=== PATIENT | male | born 1955 | race Caucasian/White ===

== ENCOUNTER 2017-12-04 15:16 | Inpatient (IN) | payer OTHER ==
[~2017-12-04] VITALS: Ht 175.3 cm; Wt 77.6 kg
[2017-12-04 17:43] LABS: HEMATOCRIT 40.2 % (38.0-50.0); HEMOGLOBIN 14.3 G/DL (12.5-16.6); MCH 32.3 PG (29.0-34.0); MCHC 35.6 G/DL (30.0-36.0); MCV 90.7 FL (86-99); PLATELET COUNT 180 K/uL (156-360); RBC DIS.WIDTH-CV 12.8 % (11.8-14.6); RBC DIS.WIDTH-SD 42.1 % (39-53); RED BLOOD COUNT 4.43 M/uL (4.00-5.50)
[2017-12-04 17:59] LABS: CHLORIDE 106 mEq/L (99-109); POTASSIUM 4.6 mEq/L (3.7-5.4); SODIUM 138 mEq/L (136-147)
[2017-12-04 18:01] LABS: GLUCOSE 114 mg/dL (70-99)
[2017-12-04 18:04] LABS: SERUM ETHYL ALCOHOL < 10 mg/dL
[2017-12-04 18:05] LABS: CREATININE 1.2 mg/dL (0.6-1.3); GFR ESTIMATE (CALCULATED) > 59 mL/min/ (58.99-99999)
[2017-12-04 18:07] LABS: UREA NITROGEN (BUN) 15 mg/dL (9-23)
[2017-12-04 18:08] LABS: SALICYLATE < 5.0 MG/DL (15-30)
[2017-12-04 18:09] LABS: ACETAMINOPHEN (TYLENOL) < 10 mcg/mL (10-30)
[2017-12-04 19:11] LABS: AMPHETAMINE NEGATIVE (500 ng/mL); BARBITURATES NEGATIVE (200 ng/mL); BENZODIAZEPINES NEGATIVE (150 ng/mL); BUPRENORPHINE NEGATIVE (10 ng/mL); COCAINE NEGATIVE (150 ng/mL); METHADONE NEGATIVE (200 ng/mL); METHAMPHETAMINE NEGATIVE (500 ng/mL); OPIATES (MORPHINE) NEGATIVE (100 ng/mL); OXYCODONE NEGATIVE (100 ng/mL); PHENCYCLIDINE NEGATIVE (25 ng/mL); PROPOXYPHENE NEGATIVE (300 ng/mL); THC CANNABINOIDS NEGATIVE (50 ng/mL); TRICYCLIC ANTIDEPRESSANTS PRESUMPTIVE POSITIVE (300 ng/mL)
[2017-12-05 00:56] VITALS: BP 153/81
[2017-12-05 07:33] VITALS: BP 123/73
[2017-12-05 16:26] VITALS: BP 109/56
[2017-12-06 03:52] VITALS: BP 120/73
[2017-12-06 07:47] VITALS: BP 111/64
[2017-12-06] MEDS ORDERED: SERTRALINE HCL50 MG PO (10:46)
== END 2017-12-06 16:00 | DRG 897 ==
LOC: EME 15:16 → 1WEST 21:43 → EDOF 21:43 → ENRESERV 12-05 00:40 → 1WEST 12-05 00:48
PROVIDERS: Emergency Medicine
DX: F11.23 Opioid dependence with withdrawal (principal); T40.2X1A Poisoning by other opioids, accidental (unintentional), initial encounter; F10.239 Alcohol dependence with withdrawal, unspecified; T51.0X1A Toxic effect of ethanol, accidental (unintentional), initial encounter; F32.9 Major depressive disorder, single episode, unspecified; R45.851 Suicidal ideations; F41.9 Anxiety disorder, unspecified; Z87.891 Personal history of nicotine dependence
CPT/HCPCS: 80048; 85027; 90839; 99281; 99285; G0480; J0572; Q0177